=== PATIENT | male | born 1955 | race Two or more races ===

== ENCOUNTER 2024-12-11 14:24 | Outpatient (RCR) | payer MEDICAID, SELFPAY ==
--- NOTE | 2024-12-11 15:15 | PTNOTE_ITS ---
PT OP Initial Eval Patient Information Outpatient Physical Therapy Treatment Date: 12/11/24 Visit Reasons: Rt shoulder pain Medical Diagnosis: M25.511 Treatment Dx #1: R shoulder pain Start of Care: 12/11/24 Date of Onset: July 2024 Smoking Status Smoking Status: Never smoker Initial Assessment Subjective: Pt is 69 yr old icelandic speaking male reports he fell onto outstretched R UE and has had pain ever since. Increased pain with reaching and lifting things. He can do HH chores and work duties with pain. PMH: cardiac surgery 4 yrs ago Imaging: with provider Pt goal: less pain, more strength of R shoulder Objective: R shoulder AROM: Strength: FF: 140 deg 4-/5 ABd: 130 deg 3+/5 ER: 90 deg Mansoor Tam: negative Full can: positive Empty can: positive Triplett's: pain with thumb up, less with thumb down Assessment: Pt presents with decreased ROM, strength and function with OH reach consistent with possible supraspinatus tendinopathy and labral irritation. Pt may benefit from skilled therapy to meet goals and has fair rehab potential. Pt may benefit from further diagnostic imaging of R shoulder such as MRI. Short Term and [employer] Super[employer] Goals 1. Ind with HEP 2. Improved stregth of FF and abd to at least 4/5 3. Pt will reach OH x10 with <=2/10 R shoulder pain Treatment Plan ? 1. Manual therapy ? 2. Therex ? 3. Modalities as indicated, moist heat, ice, estim Frequency and Duration: 2x a week for 4 trial visits and then reassess. If progressing continue up to 12 visits. Certification Dates: 12/11/24 to 03/11/25 Procedure Charges OP PT Eval Mod Complex 30 minutes: Yes
== END 2025-01-01 23:59 | disposition home or self-care (01) ==
LOC: CPTX 14:24
PROVIDERS: PCP Physician Assistant; Referring Provider Physician Assistant; Visit Provider Physician Assistant
DX: M25.511 Pain in right shoulder (principal)
CPT/HCPCS: 97162